=== PATIENT | female | born 2000 | race Caucasian/White ===

== ENCOUNTER 2024-04-13 19:02 | Emergency (ER) | payer OTHER, SELFPAY ==
[2024-04-13 19:11] VITALS: BP 130/90
--- NOTE | 2024-04-13 22:06 | ED.GENMED ---
History of Present Illness
<JAYDON Shoemaker (Lenka) - Last Filed: 04/13/24 23:09>
General
Chief Complaint: Breast Problem
Source: patient
Exam Limitations: none
Time Seen by Provider: 04/13/24 22:03
Nursing documentation reviewed up to this point in time: agreed with
History of Present Illness
History of Present Illness:
Pt is a 23 yo female with PMHx of well-controlled asthma who presents to the ED with concerns of L breast lump and pain x 2 month, which worsened today. Over the past 2 months, pt has noticed a large 'hard lump' to her upper outer quadrant of her
left breast that has become mildly tender at baseline. Today around 1630 while sitting at her desk at work, the pain became exacerbated with breathing and has persisted since. There is pain with inspiration and expiration radiating through the L
upper breast. She denies any musculoskeletal activity that may have exacerbated the pain today. She notes the lump has not changed in size with her cycle, it has stayed consistent in size. She denies fever, chills, myalgias, nipple discharge,
redness or swelling to the breast. No chest pain, back pain, dyspnea on exertion, abdominal pain, changes to urinary or stool habits.
LMP around 03/21/24 (3 weeks ago)
Menstrual cycles are regular, occurring monthly.
Not on control, never has been on control.
She has not been seen by anyone else for this.
Past History
<JAYDON Shoemaker (Lenka) - Last Filed: 04/13/24 23:09>
Past History
ED Past Medical History: Asthma
ED Past Surgical History: None
Social History
Tobacco: Non-smoker
Alcohol: None
Drug: None
Phy Exam
<JAYDON Shoemaker (Lenka) - Last Filed: 04/13/24 23:09>
General Physical Exam
General Presentation: well appearing and no apparent distress
General age: appears stated age
General Skin: warm and dry
General Habitus: normal
General Mental: alert
Cardiovascular Exam
Cardiovascular Exam: regular rate/rhythm, no edema, no gallop, no murmur and normal peripheral pulses
Pulmonary Exam
Pulmonary Exam: lungs clear, no respiratory distress, no rales, chest non tender, no rhonchi, no wheezing and no cough
Gastrointestinal Exam
Gastrointestinal Exam: non tender, soft and non distended
Comment
comment:
B/L induration to breasts more prominent in upper outer quadrant. No nipple discharge appreciated. Nipples intact, no fissues. No redness, swelling, streaking to B/L breasts.
Course
<JAYDON Shoemaker (Lenka) - Last Filed: 04/13/24 23:09>
Orders/Labs/Results
Orders:
Orders
04/13/24 22:27
CR Chest - 2 Views Urgent
Comment:
Reason For Exam: pleuritic breast/chest pain
04/13/24 23:10
HCG, Urine Qualitative Screen Urgent
Test Result ONCE
Vital Signs
Initial and Last Documented VS:
Initial Vital Signs
Temp Pulse Resp BP Pulse Ox
98.2 F 91 18 130/90 100
04/13/24 19:11 04/13/24 19:11 04/13/24 19:11 04/13/24 19:11 04/13/24 19:11
Last Documented Vital Signs
Temp Pulse Resp BP Pulse Ox
98.2 F 76 18 124/97 98
04/13/24 19:11 04/13/24 23:04 04/13/24 23:04 04/13/24 23:04 04/13/24 23:04
<Morgan Triana DO - Last Filed: 04/13/24 23:17>
Orders/Labs/Results
Orders:
Orders
04/13/24 22:27
CR Chest - 2 Views Urgent
Comment:
Reason For Exam: pleuritic breast/chest pain
04/13/24 23:10
HCG, Urine Qualitative Screen Urgent
Test Result ONCE
Vital Signs
Initial and Last Documented VS:
Initial Vital Signs
Temp Pulse Resp BP Pulse Ox
98.2 F 91 18 130/90 100
04/13/24 19:11 04/13/24 19:11 04/13/24 19:11 04/13/24 19:11 04/13/24 19:11
Last Documented Vital Signs
Temp Pulse Resp BP Pulse Ox
98.2 F 76 18 124/97 98
04/13/24 19:11 04/13/24 23:04 04/13/24 23:04 04/13/24 23:04 04/13/24 23:04
<JAYDON Shoemaker (Lenka) - Last Filed: 04/13/24 23:09>
MDM/Problems Addressed
Differential Diagnosis Includes:
DDx: fibrocystic breast disease vs fibroadenoma vs breast abscess vs PNA
No systemic symptoms. No redness, swelling. Mildly indurated. Benign physical exam. Will order CXR. Will recommend to f/u with PCP for breast U/S if pain persists.
<JAYDON Shoemaker (Lenka) - Last Filed: 04/13/24 23:09>
*Critical Care Note
Total Time (30-74mins, 75-104mins- exclusive of procedures): Not Applicable
<JAYDON Shoemaker (Lenka) - Last Filed: 04/13/24 23:09>
Update Note
Update Note:
CXR (04/13/24)
Lungs: No convincing focal infiltrates. No significant pleural effusions. No visualized pneumothorax.
Heart: Cardiac and mediastinal contours are unremarkable. No overt pulmonary vascular congestion.
Osseous structures: No acute abnormalities.
IMPRESSION:
No acute cardiopulmonary process.
ED Attending Note
<JAYDON Shoemaker ([place]ka) - Last Filed: 04/13/24 23:09>
-
Portions of this chart may have been created with voice recognition software.� Occasional wrong word or��sound alike� substitutions may have occurred due to the inherent limitations of voice recognition software.
<Morgan Triana DO - Last Filed: 04/13/24 23:17>
ED Attending Note
Patient seen and examined by attending physician: Yes
I performed the substantive portion of visit, reviewed & personally made and approve the management plan that is documented in note by myself or ANDRZEJ.: Yes
ED Attending Note:
Pleasant 23-year-old female presents with left breast lump. She states that is been present for the last 2 months but worsening over the last month. She does not have BUSINESS SERVICES ANALYST care. He has not seen her primary care provider. Patient states that
when she takes a deep breath, it causes her pain in the breast. She denies any respiratory distress. She feels that the lump is expanding. Patient was seen in conjunction with the PA student. I have reviewed and agree with the history and
treatment plan presented. On my independent physical exam, patient is awake, alert, and oriented x3, minimal acute distress. Left breast was examined with the help of female nursing. There is a palpable mass in the left breast. It is not visible
externally. It is not mobile. It is approximately 4 cm across.
Patient given outpatient radiology form for chest ultrasound to evaluate left breast mass.
Discharge Plan
Departure
Patient Disposition: Home (Routine Discharge)
Date of Disposition: 04/13/24
Time of Disposition: 23:15
Patient with high blood pressure during this ER visit?: Yes
Condition: Good
Discharge Problem:
Left breast mass
Instructions: Common breast problems, BLOOD PRESSURE
Prescriptions:
No Action
albuterol sulfate 2.5 MG/3 ML solution for nebulization
2.5 mg inhalation R Q4HPRN PRN (Reason: asthma)
methylphenidate HCl 5 MG tablet
5 mg PO DAILY
Patient Comments:
Only for school
albuterol sulfate 2.5 MG/3 ML solution for nebulization
2.5 mg inhalation Q4HPRN PRN (Reason: wheeze/cough) Qty: 1 0RF
prednisone 50 MG tablet
50 mg PO DAILY Qty: 4 0RF
Referrals:
Jenna Taylor DO [Family Provider] -
Joselyn Linda MD [Active] - Next open appointment
Activity Restrictions/Additional Instructions:
It is important that you follow-up with BUSINESS SERVICES ANALYST to establish care. I have provided an outpatient radiology order form for an ultrasound of the left chest to evaluate your breast mass. Please call as soon as possible to schedule an appointment.
It was a pleasure meeting you and taking part in your care. We hope for your continued healing and wellness.
Please read discharge instructions in their entirety. However, they are for general education and may not describe your exact diagnosis at discharge. Information on your ER visit and medical conditions were discussed with you along with appropriate
follow up information...
If indicated, please take your medications as instructed and indicated on discharge paperwork.
Please schedule a follow up appointment as directed. Call to schedule an appointment
Please return to the emergency department with ANY change in, persisting, or worsening of symptoms. If any of your symptoms do not improve, or persist, or become more severe within 6-12 hours, please return to the emergency department for further
care.
Please return to the emergency department if you develop a headache, neck pain/stiffness, fever greater than 100.4F, chest pain, shortness of breath, persistent nausea, vomiting, slurred speech, difficulty walking, numbness/tingling, weakness, signs
of infection or any other symptoms that are worrisome to you.
If you have any questions or concerns please do not hesitate to call the Hospital at or E-mail me directly at [email or web address]
Interventions
Interventions:
*Risk Screen - Suicide Last Done: 04/13/24 23:03
*General Assessment Last Done: 04/13/24 23:03
*Neglect/Abuse Screening Last Done: 04/13/24 23:03
*ED COVID-19 Vaccine History Last Done: 04/13/24 23:03
ED-Skin Assessment Last Done: 04/13/24 23:04
Discharge Date and Time
Print Language: [place]
[2024-04-13 23:04] VITALS: BP 124/97
[2024-04-13 23:29] LABS: HCG, Urine Qualitative Screen Negative
== END 2024-04-13 23:21 | disposition home or self-care (01) ==
LOC: EMR 19:02
PROVIDERS: EMERGENCY PHYSICIAN Student in an Organized Health Care Education/Training Program; FAMILY PHYSICIAN Family Medicine
DX: N63.21 Unspecified lump in the left breast, upper outer quadrant (principal); N64.4 Mastodynia; R07.1 Chest pain on breathing; J45.909 Unspecified asthma, uncomplicated; Z88.6 Allergy status to analgesic agent; Z88.5 Allergy status to narcotic agent
CPT/HCPCS: 99283; 71046; 81025

== ENCOUNTER → 2024-04-14 14:12 | Outpatient (REF) | payer OTHER, SELFPAY | LOC: WDC 14:12 | PROVIDERS: ATTENDING PHYSICIAN Student in an Organized Health Care Education/Training Program; FAMILY PHYSICIAN Family Medicine | DX: N64.4 Mastodynia (principal) | CPT/HCPCS: 76642 ==